=== PATIENT | male | born 1965 | race Caucasian/White ===

== ENCOUNTER → 2016-07-31 | Outpatient (CLI) | payer OTHER ==
[~2016-07-31] MED LIST: ADVIN25/60 INH; BUPR100T13 PO; CEPH500C PO; CLR10 PO; LPT40 PO; MODA1TAB6 PO; PRED10TA PO; PRT/40 PO; TEST100I
--- NOTE | 2016-07-31 13:21 | DIAGNOSTIC IMAGING REPORT ---
CHEST 2 VIEWS ROUTINE CLINICAL HISTORY: COUGH FEVER COMPARISON STUDY: 09/11/2014 FINDINGS: The heart is normal in size. There is evidence for emphysema. There are subtle right perihilar airspace opacities, likely representing a pneumonitis given history of fever and cough. Films subsequent to treatment are recommended in follow-up. There are no pleural effusions.[ IMPRESSION: 1. Right perihilar airspace opacities suspicious for pneumonia. Films subsequent to treatment are recommended in follow-up. Electronically signed by: Bennett Swanson M.D. 07/31/2016 1:19 PM Dictated Date/Time: 07/31/2016 1:18 PM
== END | disposition home or self-care (01) ==
LOC: C.RADBC 12:59
PROVIDERS: ATTEND Family Medicine
DX: R05 Cough (principal)

== ENCOUNTER → 2016-08-03 | Outpatient (CLI) | payer OTHER ==
[~2016-08-03] MED LIST changes: +OPTIRAY 320 IV PRN
--- NOTE | 2016-08-03 17:11 | DIAGNOSTIC IMAGING REPORT ---
CT OF THE CHEST WITH IV CONTRAST CLINICAL HISTORY: Persistent cough ABNORMAL CHEST X-RAY COMPARISON STUDY: CT scan dated 09/11/2014, chest x-ray dated 07/31/2016 TECHNIQUE: Following the IV administration of 120 mL of Optiray-320, CT of the thorax was performed from the thoracic inlet to the lung bases. Images are reviewed in the axial, sagittal, and coronal planes. IV contrast was administered without complication. CT DOSE: 382.05 mGy.cm FINDINGS: Thyroid: There is a 3 mm right lobe thyroid nodule Thoracic aorta: The thoracic aorta is normal in course and caliber, noting standard 3-vessel arch anatomy. No aneurysm or dissection is seen. Pulmonary vasculature: The pulmonary trunk is normal in caliber. There are no central filling defects identified to suggest pulmonary embolus. Note that this examination was not protocoled for the evaluation of pulmonary emboli. HEART: The heart is normal in size and configuration, without pericardial effusion. Lungs and pleural spaces: No pleural effusions are visualized. There are right lower lobe airspace opacities with centrilobular nodules, consistent with a pneumonitis. There is minor right lower lobe bronchial wall thickening. There are few areas of mucous plugging. Mediastinum: There is a mildly enlarged precarinal lymph node, likely reactive. There is a mildly enlarged subcarinal lymph node, also likely reactive. Katelynn: There are borderline enlarged right hilar lymph nodes, likely reactive. Axilla: Clear. Upper abdomen: Partially visualized upper abdominal viscera is within normal limits. Skeletal structures: There are no lytic or blastic osseous lesions. IMPRESSION: 1. Right lower lobe pulmonary airspace opacities consistent with a pneumonitis. Mildly prominent right hilar and mediastinal lymph nodes, likely reactive 2. Radiographic follow-up subsequent to antibiotic therapy is recommended Electronically signed by: Bennett Swanson M.D. 08/03/2016 5:09 PM Dictated Date/Time: 08/03/2016 5:04 PM
[2016-08-03 18:07] LABS: BASO % 0.1 %; BASO ABS # 0.01 K/uL (0-0.2); COMPLETE YES; HEMATOCRIT 40.5 % (42-52); IG% 0.9 %; LYMPH % 14.3 %; LYMPH ABS # 1.18 K/uL (1.2-3.4); MEAN CORPUSCULAR HEMOGLOBIN 30.4 pg (25-34); MEAN CORPUSCULAR HGB CONC 34.6 g/dl (32-36); MEAN PLATELET VOLUME 10.3 fL (7.4-10.4); MONO % 2.4 %; NEUT % 82.3 %; PLATELET COUNT 327 K/uL (130-400); WHITE BLOOD COUNT 8.23 K/uL (4.8-10.8)
[2016-08-03 18:30] LABS: BLOOD UREA NITROGEN 22 mg/dl (7-18); BUN/CREATININE RATIO 19.8 (10-20); CALCIUM 9.1 mg/dl (8.5-10.1); CARBON DIOXIDE 25 mmol/L (21-32); CHLORIDE 102 mmol/L (98-107); GLUCOSE 132 mg/dl (70-99); POTASSIUM 4.5 mmol/L (3.5-5.1); SODIUM 135 mmol/L (136-145)
== END | disposition home or self-care (01) ==
LOC: C.CTS 16:48
PROVIDERS: ATTEND Internal Medicine Geriatric Medicine
DX: R05 Cough (principal)

== ENCOUNTER → 2016-08-31 | Outpatient (CLI) | payer OTHER ==
[~2016-08-31] MED LIST changes: -OPTIRAY 320 IV PRN
--- NOTE | 2016-08-31 15:53 | DIAGNOSTIC IMAGING REPORT ---
CHEST 2 VIEWS ROUTINE CLINICAL HISTORY: PNEUMONIA INVOLVING RIGHT LUNG COMPARISON STUDY: 07/31/2016 FINDINGS: The chest has an emphysematous configuration. There is been interval resolution of the right perihilar airspace opacities. There is no focal pulmonary consolidation. There is no failure. There are no pleural effusions.[ IMPRESSION: Interval resolution of the right perihilar airspace opacities. No active disease in the chest. Electronically signed by: Bennett Swanson M.D. 08/31/2016 3:52 PM Dictated Date/Time: 08/31/2016 3:51 PM
== END | disposition home or self-care (01) ==
LOC: C.RADBC 15:34
PROVIDERS: ATTEND Family Medicine
DX: J18.9 Pneumonia, unspecified organism (principal)

== ENCOUNTER → 2016-10-21 | Outpatient (CLI) | payer OTHER ==
[~2016-10-21] MED LIST changes: -MODA1TAB6 PO; +MODA200T42 PO; +PANT40TA2 PO; -PRT/40 PO
--- NOTE | 2016-10-21 10:41 | DIAGNOSTIC IMAGING REPORT ---
CHEST 2 VIEWS ROUTINE CLINICAL HISTORY: Acute bronchitis. Evaluate for pneumonia. COMPARISON STUDY: Chest CT August 03, 2016 and chest radiograph August 31, 2016. FINDINGS: Lung volumes are normal. There is no pneumothorax or pleural effusion. Cardiac size is normal. Mediastinal contours are normal. There is no consolidation. IMPRESSION: No acute cardiopulmonary findings. Electronically signed by: Mick Malcolm M.D. 10/21/2016 10:40 AM Dictated Date/Time: 10/21/2016 10:39 AM
== END | disposition home or self-care (01) ==
LOC: C.RADBC 10:06
PROVIDERS: ATTEND Internal Medicine
DX: J20.9 Acute bronchitis, unspecified (principal)

== ENCOUNTER 2017-01-15 10:40 | Emergency (ER) | payer OTHER ==
[~2017-01-15] VITALS: Ht 208.3 cm; Wt 106.2 kg
[~2017-01-15 10:40] MED LIST changes: -CEPH500C PO; -CLR10 PO; -TEST100I
[2017-01-15 10:43] VITALS: TEMP 36.5; Ht 208.3 cm; Wt 106.2 kg
[2017-01-15] MEDS ORDERED: CLR10 PO (11:24)
[2017-01-15] MEDS ORDERED: TEST100I (11:24)
--- NOTE | 2017-01-15 11:33 | EMERGENCY ROOM VISIT NOTE ---
ED Visit Note First contact with patient: 11:01 CHIEF COMPLAINT: Hand injury HISTORY OF PRESENT ILLNESS: This 51-year-old male patient presented to the emergency department ambulatory complaining of pain in the left hand. The patient states that he was trimming trees yesterday and believes that he may have scraped the hand while doing this. He states the pain became swollen last night. He elevated the hand and applied ice which did help slightly, but he states the swelling increased again today. He does not recall any specific injury to the hand. He rates his overall discomfort a 1/10 at this time. He denies any history of injuries to this hand. He denies any fevers/chills or redness extending up the wrist or arm. REVIEW OF SYSTEMS: A 6 system review of systems was completed with positives and pertinent negatives in the HPI. ALLERGIES: Diazepam, simvastatin MEDICATIONS: See med list PMH: Asthma SOCIAL HISTORY: The patient lives locally with family. Nonsmoker. PHYSICAL EXAM: Vital Signs: Reviewed Nurse's notes, vital signs stable. GENERAL : This is a 51-year-old male, in no acute distress, but appears to be in pain, well-developed, well-nourished. MUSCULOSKELETAL: There is no deformity of the left hand. There is mild erythema and soft tissue swelling over the dorsal aspect of the lateral left hand. There is a small scabbed abrasion over the dorsum of the left hand. Is tenderness to palpation over the second and third metacarpals. Normal thumb opposition to all fingers. Disability Insurance Hearing Officer strength 5/5. There is no laceration. Capillary refill less than 2 seconds. No tenderness of the fingers or wrist. Full range of motion of the wrist. No snuff box tenderness. Radial pulse 2+. NEURO: Alert and oriented to person, place, and time. Normal sensation to light and sharp touch. RADIOGRAPHIC FINDINGS: LEFT HAND MIN 3 VIEWS ROUTINE CLINICAL HISTORY: left hand pain, swelling pain. Edema. COMPARISON: None. DISCUSSION: The bones and joint spaces appear intact. There is no evidence of fracture, dislocation or bony disease. Mild generalized soft tissue edema. IMPRESSION: Mild soft tissue edema. No acute bony abnormality. EMERGENCY DEPARTMENT COURSE: I examined the patient. An x-ray of the left hand was reviewed by myself and radiology and shows mild soft tissue swelling with no acute findings. The patient does appear to have a mild cellulitis, likely secondary to the abrasion on the hand. He will be placed on Keflex. He was instructed to return with worsening swelling, worsening redness, or fevers. He verbalized understanding of my assessment and treatment plan. The patient was discharged home in good condition. Medication reconciliation: I attest that I have personally reviewed the patient 's current medication list. Blood Pressure Screening: Patient was found to have a slightly elevated blood pressure due to circumstances. I do not believe that the patient requires hypertension monitoring. DIAGNOSIS: Left hand cellulitis Problem List Medical Problems: (1) Asthma Status: Chronic (2) Depression Status: Chronic (3) Klinefelter syndrome Status: Chronic (4) Prostatitis Status: Resolved Current/Historical Medications Scheduled Atorvastatin (Atorvastatin Calcium), 40 MG PO QAM Bupropion Hcl (Wellbutrin), 100 MG PO TID Cephalexin Monohydrate (Keflex), 500 MG PO QID Fluticasone Prop/Salmeterol (Advair Diskus 250/50 60 Dose), 1 PUFF INH BID Loratadine (Claritin), 10 MG PO DAILY Modafinil (Provigil), 200 MG PO DAILY Pantoprazole (Pantoprazole Sodium), 40 MG PO DAILY Prednisone (Prednisone), 40 MG PO DAILY Miscellaneous Medications Testosterone Cypionate (Depo-Testosterone) Allergies Coded Allergies: Simvastatin (Verified Allergy, Intermediate, HIVES, 01/15/17) Diazepam (Verified Adverse Reaction, Unknown, LOW BP, 01/15/17) Vital Signs Date Time Temp Pulse Resp B/P (MAP) Pulse Ox O2 Delivery O2 Flow Rate FiO2 01/15/17 12:02 89 18 152/91 94 01/15/17 10:43 36.5 89 18 132/80 94 Room Air Departure Information Impression Primary Impression: Cellulitis of hand Dispostion Home / Self-Care Condition GOOD Prescriptions Cephalexin Monohydrate (Keflex) 500 Mg Cap 500 MG PO QID for 7 Days, #28 CAP Prov: Della Almonte .JAQUELINE 01/15/17 Referrals Benedicto Lyles D.O.[facility]. (PCP) Patient Instructions My [facility] Additional Instructions You were prescribed Keflex to be taken 4 times daily as prescribed. This is an antibiotic. All antibiotics have the potential to cause diarrhea. Stop this medication and contact a medical provider if you were to develop any significant adverse side effects including: wheezing, shortness of breath, passing out, vomiting, or a diffuse rash. Always take antibiotics as directed and COMPLETE the ENTIRE course regardless of the improvement of your symptoms. For pain control, you can use the following [id number] medicines (if >12 yo): - Regular strength (325mg/tab) Tylenol (acetaminophen) 2 tabs every 4-6 hours as needed. Do not exceed 12 tablets in a 24 hour period. Avoid taking more than 4 grams (4000 mg) of Tylenol per day. This includes any other sources of acetaminophen you may take on a regular basis. - Regular strength (200 mg/tab) Advil (ibuprofen) 1-2 tabs every 4-6 hours as needed. Do not exceed a dose of 3200 mg per day. Ice the hand and elevate as needed for pain/swelling. Follow-up with your primary care provider for recheck in 48 hours. Return here for worsening swelling, redness extending up the arm, fevers or any other new/concerning symptoms.
--- NOTE | 2017-01-15 11:35 | DIAGNOSTIC IMAGING REPORT ---
LEFT HAND MIN 3 VIEWS ROUTINE CLINICAL HISTORY: left hand pain, swelling pain. Edema. COMPARISON: None. DISCUSSION: The bones and joint spaces appear intact. There is no evidence of fracture, dislocation or bony disease. Mild generalized soft tissue edema. IMPRESSION: Mild soft tissue edema. No acute bony abnormality. Electronically signed by: Varinder Sky M.D. 01/15/2017 11:34 AM Dictated Date/Time: 01/15/2017 11:33 AM
[2017-01-15] MEDS ORDERED: CEPH500C PO (11:51)
[2017-01-15 12:02] VITALS: BP 152/91; PULSE 89; O2SAT 94
== END 2017-01-15 12:02 | disposition home or self-care (01) ==
LOC: C.EDB 10:41 → C.EDD 12:02
DX: L03.114 Cellulitis of left upper limb (principal); J45.909 Unspecified asthma, uncomplicated; F32.9 Major depressive disorder, single episode, unspecified; Q98.4 Klinefelter syndrome, unspecified; Z79.899 Other long term (current) drug therapy

== ENCOUNTER → 2017-04-03 | Outpatient (CLI) | payer OTHER ==
[~2017-04-03] MED LIST changes: +CLR10 PO; +MODA1TAB6 PO; -MODA200T42 PO; -PANT40TA2 PO; +PRT/40 PO; +TEST100I
[2017-04-03 17:12] LABS: ALT/SGPT 27 U/L (12-78); AST/SGOT 10 U/L (15-37); BLOOD UREA NITROGEN 19 mg/dl (7-18); BUN/CREATININE RATIO 20.7 (10-20); CALCIUM 8.9 mg/dl (8.5-10.1); CARBON DIOXIDE 27 mmol/L (21-32); CHLORIDE 105 mmol/L (98-107); CREATININE 0.94 mg/dl (0.60-1.40); GLUCOSE 85 mg/dl (70-99); SODIUM 139 mmol/L (136-145)
[2017-04-03 17:14] LABS: ALB/GLOB RATIO 1.2 (0.9-2); ALKALINE PHOSPHATASE 126 U/L (45-117)
== END | disposition home or self-care (01) ==
LOC: C.LAB1850 15:08
PROVIDERS: ATTEND Internal Medicine
DX: Z51.81 Encounter for therapeutic drug level monitoring (principal); Z79.899 Other long term (current) drug therapy

== ENCOUNTER → 2017-09-05 | Outpatient (CLI) | payer OTHER ==
[~2017-09-05] MED LIST changes: -MODA1TAB6 PO; +MODA200T42 PO; +PANT40TA2 PO; -PRT/40 PO
--- NOTE | 2017-09-05 16:03 | DIAGNOSTIC IMAGING REPORT ---
CT OF THE SINUSES WITHOUT CONTRAST FUSION PROTOCOL CLINICAL HISTORY: Nasal polyps. Nasal septal deviation. COMPARISON STUDY: No previous studies for comparison. TECHNIQUE: Axial images of the sinuses were obtained without IV contrast according to the Fusion protocol. Coronal reformats were viewed. FINDINGS: No bony destruction is present. No mass is identified within the sinuses or the nasal cavity. The mastoid air cells are clear. The middle ears are clear. The ossicles are intact. Orbits are unremarkable on this unenhanced examination. There are periapical lucencies of the right first and second maxillary molars with associated mild mucosal thickening of the inferior right maxillary sinus. There is significant rightward deviation of the anterior nasal septum. Frontal sinuses are clear. The frontoethmoidal recesses are patent. There is minimal mucosal thickening of the sphenoid, maxillary and ethmoid sinuses. The major drainage pathways are patent. There are no air-fluid levels. IMPRESSION: 1. Minimal mucosal thickening of the sinuses without evidence of acute sinusitis. Patent major drainage pathways. 2. Periapical lucencies of the right first and second maxillary molars with associated mild mucosal thickening of the inferior right maxillary sinus. 3. Significant rightward deviation of the anterior nasal septum. Electronically signed by: Mick Malcolm M.D. 09/05/2017 4:01 PM Dictated Date/Time: 09/05/2017 3:54 PM
== END | disposition home or self-care (01) ==
LOC: C.CTS 15:07
PROVIDERS: ATTEND Physician Assistant
DX: J34.2 Deviated nasal septum (principal)